=== PATIENT | female | born 1950 | race Caucasian/White ===

== ENCOUNTER 2018-05-13 06:59 | Inpatient (IN) | payer MEDICARE, MEDICAID ==
[2018-05-11 15:33] LABS: BASOPHILS # (AUTO) 0.05 x10^3/uL (0-0.1); BASOPHILS % (AUTO) 0 % (0-1); EOSINOPHILS # (AUTO) 0.16 x10^3/uL (0-0.4); EOSINOPHILS % (AUTO) 2 % (1-7); LYMPHOCYTES % (AUTO) 19 % (22-44); MD NO; MEAN CORPUSCULAR HEMOGLOBIN 34.9 pg (27.0-34.8); MEAN CORPUSCULAR HGB CONC 32.9 g/dL (32.4-35.8); MEAN CORPUSCULAR VOLUME 105.9 fL (80-100); MEAN PLATELET VOLUME 7.3 fL (7.4-10.4); MONOCYTES # (AUTO) 0.73 x10^3/uL (0.2-0.8); MONOCYTES % (AUTO) 7 % (2-9); NEUTROPHILS # (AUTO) 8.07 x10^3/uL (1.8-6.8); NEUTROPHILS % (AUTO) 73 % (42-75); PLATELET COUNT 463 x10^3/uL (130-400); RED BLOOD COUNT 4.37 x10^6/uL (3.82-5.3); RED CELL DISTRIBUTION WIDTH 14.2 % (9.6-15.2)
[2018-05-11 15:43] LABS: ALANINE AMINOTRANSFERASE 30 U/L (12-78); ALBUMIN 3.6 g/dL (3.4-5.0); ANION GAP 6 mmol/L (5-15); CALCIUM 9.6 mg/dL (8.5-10.1); CHLORIDE 106 mmol/L (98-107); CREATININE 0.86 mg/dL (0.55-1.02)
[2018-05-11 15:45] LABS: ALKALINE PHOSPHATASE 118 U/L (45-117); BILIRUBIN,TOTAL 0.4 mg/dL (0.2-1.0)
[~2018-05-13] VITALS: Ht 170.2 cm; Wt 79.0 kg
[~2018-05-13 06:59] MED LIST: BUPIVACAINE/PF-EPI 0.5% 1:200K ONE; CALC1TAB58 PO; CHOL100012 PO; FOLI-17 PO; HYDR-3622 PO; LEVO50TA5 PO; METH2.5T PO; RIVA15TA PO; VENL75TA PO; ZOLP10TA5 PO
[2018-05-13] MEDS ORDERED: OxyconTIN ER 10 MG TAB.ER PO ONE (07:30)
[2018-05-13] MEDS ORDERED: GABAPENTIN 300 MG CAPSULE PO ONE (07:30)
[2018-05-13] MEDS ORDERED: ACETAMINOPHEN 500 MG TABLET PO ONE (07:30)
[2018-05-13] MEDS ORDERED: DIAZEPAM 5 MG TABLET PO ONE (07:30)
[2018-05-13] MEDS ORDERED: INHALER INH (07:43)
[2018-05-13] MEDS ORDERED: LOVENOX SQ (07:43)
[2018-05-13] MEDS ORDERED: FENTANYL PF 250 MCG/5ML ONE (08:07)
[2018-05-13] MEDS ORDERED: MIDAZOLAM 1 MG/ML, 2ML ONE (08:07)
[2018-05-13] MEDS ORDERED: LACTATED RINGERS 1,000 ML IV SCH ×2 (08:07→13:00)
[2018-05-13] MEDS ORDERED: KETAMINE 50 MG/ML, 10ML ONE (08:42)
[2018-05-13] MEDS ORDERED: EPHEDRINE 50 MG/ML, 1ML ONE (09:18)
[2018-05-13] MEDS ORDERED: FENTANYL PF 100 MCG/2ML IV PRN (10:00)
[2018-05-13] MEDS ORDERED: PROMETHAZINE 25 MG/ML, 1ML IV PRN (10:00)
[2018-05-13] MEDS ORDERED: ALBUTEROL/IPRATROPIUM 2.5MG/0.5MG, 3 ML NPPB PRN (10:00)
[2018-05-13] MEDS ORDERED: HYDROmorphone 2 MG/ML, 1ML IVPush PRN (10:00)
[2018-05-13] MEDS ORDERED: METOPROLOL 1 MG/ML, 5ML IV PRN (10:00)
[2018-05-13] MEDS ORDERED: ONDANSETRON 2MG/ML, 2ML IV PRN ×2 (10:00→13:00)
[2018-05-13] MEDS ORDERED: SCOPOLAMINE PATCH, 1.5MG PATCH.TD72 TD PRN ×2 (10:00→13:00)
[2018-05-13] MEDS ORDERED: MIDAZOLAM 1 MG/ML, 2ML IV PRN (10:00)
[2018-05-13] MEDS ORDERED: OXYcodone 5 MG/5 ML ORAL.SOL UDC PO PRN (10:00)
[2018-05-13] MEDS ORDERED: MEPERIDINE/PF 25MG/0.5ML IVPush PRN (10:00)
[2018-05-13] MEDS ORDERED: hydrALAzine 20 MG/ML, 1ML IV PRN (10:00)
[2018-05-13] MEDS ORDERED: LIDOCAINE 2%, 6 ML JEL.PF.APP MM ONE (10:14)
[2018-05-13] MEDS ORDERED: HYDROmorphone 1 MG/ML, 1ML AMP ONE (11:09)
[2018-05-13] MEDS ORDERED: OXYcodone 5 MG/5 ML ORAL.SOL UDC ONE (11:09)
[2018-05-13] MEDS ORDERED: HALOPERIDOL 5 MG/ML IVPush PRN (13:00)
[2018-05-13] MEDS ORDERED: LORazepam 2 MG/ML, 1ML IVPush PRN (13:00)
[2018-05-13] MEDS ORDERED: MORPHINE SULFATE 4 MG/ML, 1ML IVPush PRN (13:00)
[2018-05-13] MEDS ORDERED: CALCIUM CARBONATE 500 MG TAB.CHEW PO PRN (13:00)
[2018-05-13] MEDS ORDERED: LORazepam 1MG TABLET PO PRN (13:00)
[2018-05-13] MEDS ORDERED: DIPHENHYDRAMINE 50 MG/ML, 1ML IVPush PRN (13:00)
[2018-05-13] MEDS ORDERED: DEXAMETHASONE 4 MG/ML, 1ML IVPush PRN (13:00)
[2018-05-13] MEDS: ACETAMINOPHEN 500 MG TABLET PO SCH ×2 (14:11→20:21)
[2018-05-13] MEDS ORDERED: ONDANSETRON 2MG/ML, 2ML ONE (15:41)
[2018-05-13] MEDS ORDERED: FERROUS SULFATE 15MG/ML ORAL SOL ONE (15:41)
[2018-05-13] MEDS ORDERED: PROPOFOL 10 MG/ML, 20ML ONE (15:41)
[2018-05-13] MEDS ORDERED: DEXAMETHASONE 4 MG/ML, 1ML ONE (15:41)
[2018-05-13] MEDS ORDERED: CEFOTETAN 1 GM ONE (15:41)
[2018-05-13] MEDS ORDERED: GLYCOPYRROLATE 0.2MG/1ML, 5ML ONE (15:41)
[2018-05-13] MEDS ORDERED: ROCURONIUM 10MG/ML,5ML ONE (15:41)
[2018-05-13 16:04] VITALS: BP 96/53
[2018-05-13] MEDS: OXYcodone IR 5MG TABLET PO PRN ×3 (16:42→22:12)
[2018-05-13 18:43] VITALS: BP 102/52
[2018-05-13] MEDS: ZOLPIDEM 10MG TABLET PO SCH (22:12)
[2018-05-13] MEDS: VENLAFAXINE 75MG TABLET PO SCH (22:12)
[2018-05-14 00:33] VITALS: BP 103/54
[2018-05-14] MEDS: ACETAMINOPHEN 500 MG TABLET PO SCH ×4 (02:33→20:47)
[2018-05-14 04:08] VITALS: BP 102/58
[2018-05-14] MEDS: OXYcodone IR 5MG TABLET PO PRN ×5 (04:24→22:58)
[2018-05-14] MEDS: ENOXAPARIN 80 MG/0.8 ML SQ SCH ×2 (05:13→17:13)
[2018-05-14] MEDS: LEVOTHYROXINE 50 MCG TABLET PO SCH (05:14)
[2018-05-14 05:45] LABS: ANION GAP 4 mmol/L (5-15); CALCIUM 8.7 mg/dL (8.5-10.1); CHLORIDE 111 mmol/L (98-107)
[2018-05-14 05:48] LABS: CREATININE 0.83 mg/dL (0.55-1.02)
[2018-05-14 05:52] LABS: MEAN CORPUSCULAR HEMOGLOBIN 34.9 pg (27.0-34.8); MEAN CORPUSCULAR HGB CONC 32.9 g/dL (32.4-35.8); MEAN CORPUSCULAR VOLUME 106.1 fL (80-100); MEAN PLATELET VOLUME 7.4 fL (7.4-10.4); PLATELET COUNT 363 x10^3/uL (130-400); RED BLOOD COUNT 3.57 x10^6/uL (3.82-5.3); RED CELL DISTRIBUTION WIDTH 14.7 % (9.6-15.2)
[2018-05-14 07:46] LABS: BASOPHILS # (AUTO) 0.03 x10^3/uL (0-0.1); BASOPHILS % (AUTO) 0 % (0-1); EOSINOPHILS % (AUTO) 0 % (1-7); LYMPHOCYTES # (AUTO) 1.83 x10^3/uL (1-3.4); LYMPHOCYTES % (AUTO) 11 % (22-44); MD SCAN; MONOCYTES # (AUTO) 1.16 x10^3/uL (0.2-0.8); MONOCYTES % (AUTO) 7 % (2-9); NEUTROPHILS % (AUTO) 83 % (42-75)
[2018-05-14 08:27] VITALS: BP 113/74
[2018-05-14] MEDS ORDERED: NICOTINE 21 MG/24 HR PATCH.TD24 ONE (08:59)
[2018-05-14] MEDS: VENLAFAXINE 75MG TABLET PO SCH ×2 (09:04→20:48)
[2018-05-14] MEDS: NICOTINE 21 MG/24 HR PATCH.TD24 TD SCH (10:00)
[2018-05-14 12:10] VITALS: BP 120/50
[2018-05-14] MEDS ORDERED: METO25TA35 PO (13:28)
[2018-05-14] MEDS: ZOLPIDEM 10MG TABLET PO SCH (20:47)
[2018-05-14] MEDS: METOPROLOL TARTRATE 25 MG TABLET PO SCH (20:48)
[2018-05-14 21:30] VITALS: BP 133/62
[2018-05-15] MEDS: ACETAMINOPHEN 500 MG TABLET PO SCH ×2 (03:39→09:14)
[2018-05-15] MEDS: OXYcodone IR 5MG TABLET PO PRN ×2 (03:41→09:15)
[2018-05-15 03:44] VITALS: BP 106/67
[2018-05-15 05:34] LABS: ANION GAP 2 mmol/L (5-15); CALCIUM 8.7 mg/dL (8.5-10.1); CHLORIDE 111 mmol/L (98-107); CREATININE 0.64 mg/dL (0.55-1.02)
[2018-05-15] MEDS: LEVOTHYROXINE 50 MCG TABLET PO SCH (05:38)
[2018-05-15] MEDS: ENOXAPARIN 80 MG/0.8 ML SQ SCH (05:38)
[2018-05-15] MEDS: NICOTINE 21 MG/24 HR PATCH.TD24 TD SCH (05:38)
[2018-05-15 05:43] LABS: MEAN CORPUSCULAR HEMOGLOBIN 35.9 pg (27.0-34.8); MEAN CORPUSCULAR HGB CONC 33.7 g/dL (32.4-35.8); MEAN CORPUSCULAR VOLUME 106.6 fL (80-100); MEAN PLATELET VOLUME 7.5 fL (7.4-10.4); PLATELET COUNT 309 x10^3/uL (130-400); RED BLOOD COUNT 3.24 x10^6/uL (3.82-5.3); RED CELL DISTRIBUTION WIDTH 14.6 % (9.6-15.2)
[2018-05-15 06:16] LABS: BASOPHILS # (AUTO) 0.07 x10^3/uL (0-0.1); BASOPHILS % (AUTO) 1 % (0-1); EOSINOPHILS # (AUTO) 0.14 x10^3/uL (0-0.4); EOSINOPHILS % (AUTO) 1 % (1-7); LYMPHOCYTES % (AUTO) 32 % (22-44); MD SCAN; MONOCYTES # (AUTO) 0.84 x10^3/uL (0.2-0.8); MONOCYTES % (AUTO) 8 % (2-9); NEUTROPHILS # (AUTO) 6.32 x10^3/uL (1.8-6.8); NEUTROPHILS % (AUTO) 58 % (42-75)
[2018-05-15 08:37] VITALS: BP 124/69
[2018-05-15] MEDS: METOPROLOL TARTRATE 25 MG TABLET PO SCH (09:15)
[2018-05-15] MEDS: VENLAFAXINE 75MG TABLET PO SCH (09:15)
== END 2018-05-15 11:52 | disposition home or self-care (01) | DRG 329 ==
LOC: ORIP 06:59 → 4NOR 12:37
PROVIDERS: ADMIT Colon & Rectal Surgery; ATTEND Colon & Rectal Surgery
PROC: 0DTF4ZZ Resection of Right Large Intestine, Percutaneous Endoscopic Approach (ICD-10-PCS; principal; 2018-05-13 09:00)
DX: C18.2 Malignant neoplasm of ascending colon (principal); I26.99 Other pulmonary embolism without acute cor pulmonale; K92.1 Melena; J44.9 Chronic obstructive pulmonary disease, unspecified; M06.9 Rheumatoid arthritis, unspecified; I10 Essential (primary) hypertension; G89.4 Chronic pain syndrome; E03.9 Hypothyroidism, unspecified; K57.90 Diverticulosis of intestine, part unspecified, without perforation or abscess without bleeding; F17.210 Nicotine dependence, cigarettes, uncomplicated; Z86.14 Personal history of Methicillin resistant Staphylococcus aureus infection; Z98.891 History of uterine scar from previous surgery; Z90.710 Acquired absence of both cervix and uterus; Z80.1 Family history of malignant neoplasm of trachea, bronchus and lung
CPT/HCPCS: 36415; 80048; 80053; 83735; 85025; 86850; 86900; 88307; 93005; G0378; J1100; J1170; J1650; J2250; J2405; J2704; J3010; J3490; J7120